=== PATIENT | male | born 1985 | race Caucasian/White ===

== ENCOUNTER 2016-09-23 18:35 | Emergency (ER) | payer SELFPAY ==
[2016-09-23] MEDS ORDERED: SODIUM CHLORIDE 1,000 ML IV STA (18:40)
[2016-09-23] MEDS ORDERED: AMPICILLIN NA/SULBACTAM NA 3 GM in SODIUM CHLORIDE 100 ML IVPB ONE (18:40)
[2016-09-23] MEDS ORDERED: KETOROLAC TROMETHAMINE 30 MG/1 ML VIAL IVPUSH ONE (18:40)
[2016-09-23] MEDS ORDERED: KETOROLAC TROMETHAMINE 30 MG/1 ML VIAL ONE (18:43)
[2016-09-23] MEDS ORDERED: AMPICILLIN NA/SULBACTAM NA 3 GM VIAL ONE (18:44)
[2016-09-23 19:07] LABS: BASOPHIL 2.3 % (0-2.0); EOSINOPHIL 0.5 % (0-4.5); MCH 29.9 pg (25.7-33.7); MCHC 34.6 g/dl (32.0-35.9); MEAN CELL VOLUME 86.3 fl (80-96); MEAN PLT VOLUME 10.2 fl (7.5-11.1); NEUTROPHILS 74.8 % (42.8-82.8); PLATELET COUNT 141 K/MM3 (134-434); RDW 12.8 % (11.9-15.9); WHITE BLOOD COUNT 14.7 K/mm3 (4.0-10.8)
[2016-09-23] MEDS ORDERED: HEMOQUE TEST 1 EACH EACH ONE (19:10)
[2016-09-23 19:13] LABS: ALBUMIN 4.1 g/dl (3.5-5.0); ALK PHOS 74 U/L (32-92); ANION GAP 10 (8-16); BILIRUBIN,TOTAL 0.9 mg/dl (0.2-1.0); CALCIUM 8.7 mg/dl (8.4-10.2); CO2 25 mmol/L (22-28); COCKROFT - GAULT 0; CREATININE 0.8 mg/dl (0.6-1.3); GLUCOSE,RANDOM 130 mg/dl (74-106); SGOT/AST 25 U/L (10-42); SGPT/ALT 19 U/L (10-40); TOT PROT 7.8 g/dl (6.4-8.3)
--- NOTE | 2016-09-23 19:24 | PDOC ---
History of Present Illness - History of Present Illness Initial Comments: 09/23/16 19:35 The patient is a 31 year old male with a history of diabetes presents to the emergency department with a complaint of throat pain for 4 days. Patient reports his throat has been swollen with progressively worsening pain. Patient reports a fever. No other symptoms reported Adult HPI PAST MEDICAL HISTORY: Diabetes PAST SURGICAL HISTORY: no significant history FAMILY HISTORY: no pertinant history SOCIAL HISTORY: Pt lives with family and is employed. MEDICATIONS: reviewed ALLERGIES: As per nursing notes ROS General:Yes fevers . No chills, no weakness, no weight loss HEENT: Yes: sore throat. Yes Throat swelling No change in vision. No ear pain CardioVascular: No chest pain or shortness of breath Respiratory:No cough, or wheezing. Gastrointestinal: no nausea, vomitting, diarrhea or constipation, No rectal bleeding Genitourinary: No dysuria, hematuria, or frequency Musculoskeletal: No joint or muscle pain or swelling Neurologic: No headache, vertigo, dizziness or loss of consciousness Psychiatric: no depression Skin: No rashes or easy bruising Endocrine: no increased thirst or abnormal weight change Allergic: no skin or latex allergy All other systems reviewed and normal Exam GENERAL: The patient is awake, alert, and fully oriented, in no acute distress. HEAD: Normal with no signs of trauma. EYES: Pupils equal, round and reactive to light, extraocular movements intact, sclera anicteric, conjunctiva clear. THROAT: very large peritonsillar abscess, posterior pharynx with displacement of the uvula, there is bilateral submandibular lymphadenopathy. EXTREMITIES: Normal range of motion, no edema. NEUROLOGICAL: Normal speech, normal gait. PSYCH: Normal mood, normal affect. SKIN: Warm, Dry, normal turgor, no rashes or lesions noted. <Juan Cornejo - Last Filed: 09/23/16 19:35> - General History Source: Patient Exam Limitations: No Limitations - History of Present Illness Initial Comments: 09/23/16 19:32 A portion of this note was documented by scribe services under my direction. I have reviewed the details of the note, within reason, and agree with the documentation. The case summary and management plan written by me. Assessment and plan: This is a 31-year-old male who comes in complaining of 4 days progressive sore throat and difficulty swallowing. Patient on exam has a huge peritonsillar abscess. Patient will be transferred to [facility] ENT service for definitive treatment of his peritonsillar abscess including incision and drainage. Patient understands the need for transfer and agrees to transfer to the [facility]. Patient requests that he be transferred to [facility] instead a [facility]. <Cheryl Jama I - Last Filed: 09/23/16 21:22> - General Chief Complaint: Sore Throat Stated Complaint: SORE THROAT, PAINFUL SWALLOWING Time Seen by Provider: 09/23/16 19:12 Past History <Juan Cornejo - Last Filed: 09/23/16 19:35> - Past Medical History HTN: Yes - Psycho/Social/Smoking Cessation Hx Anxiety: No Suicidal Ideation: No Smoking History: Former smoker Have you smoked in the past 12 months: Yes Number of Cigarettes Smoked Daily: 5 Information on smoking cessation initiated: Yes 'Breaking Loose' booklet given: 09/23/16 Hx Alcohol Use: No Drug/Substance Use Hx: No <Cheryl Jama I - Last Filed: 09/23/16 21:22> - Past Medical History Allergies/Adverse Reactions: Allergies Allergy/AdvReac Type Severity Reaction Status Date / Time No Known Allergies Allergy Verified 09/23/16 18:36 Home Medications: Ambulatory Orders No Home Medications 0 dose .ROUTE UTDICT 09/11/13 *Physical Exam - Vital Signs Last Vital Signs Temp Pulse Resp BP Pulse Ox 101 F H 103 H 20 159/107 97 09/23/16 18:35 09/23/16 18:35 09/23/16 18:35 09/23/16 18:50 09/23/16 18:35 <Juan Cornejo - Last Filed: 09/23/16 19:35> - Vital Signs Last Vital Signs Temp Pulse Resp BP Pulse Ox 101 F H 103 H 20 159/107 97 09/23/16 18:35 09/23/16 18:35 09/23/16 18:35 09/23/16 18:50 09/23/16 18:35 <Cheryl Jama I - Last Filed: 09/23/16 21:22> ED Treatment Course - LABORATORY CBC & Chemistry Diagram: 09/23/16 18:40 09/23/16 18:40 - ADDITIONAL ORDERS Additional order review: Laboratory Results 09/23/16 18:40 Sodium 136 Potassium 3.8 Chloride 101 Carbon Dioxide 25 Anion Gap 10 BUN 12 D Creatinine 0.8 Creat Clearance w eGFR > 60 Random Glucose 130 H D Calcium 8.7 Total Bilirubin 0.9 D AST 25 D ALT 19 D Alkaline Phosphatase 74 D Total Protein 7.8 Albumin 4.1 09/23/16 18:40 RBC 4.91 MCV 86.3 MCHC 34.6 RDW 12.8 MPV 10.2 Neutrophils % 74.8 D Lymphocytes % 13.6 D Monocytes % 8.8 Eosinophils % 0.5 Basophils % 2.3 H - Medications Given in the ED: ED Medications Discontinued Medications Generic Name Dose Route Start Last Admin Trade Name Freq PRN Reason Stop Dose Admin Ampicillin Sodium/Sulbactam 100 mls @ 200 mls/hr 09/23/16 18:40 09/23/16 18:55 Sodium 3 gm/ Sodium Chloride IVPB 09/23/16 19:09 200 mls/hr ONCE ONE Administration Ketorolac Tromethamine 30 mg 09/23/16 18:40 09/23/16 18:50 Toradol Injection - IVPUSH 09/23/16 18:41 30 mg ONCE ONE Administration <Juan Cornejo - Last Filed: 09/23/16 19:35> - LABORATORY CBC & Chemistry Diagram: 09/23/16 18:40 09/23/16 18:40 - ADDITIONAL ORDERS Additional order review: Laboratory Results 09/23/16 18:40 Sodium 136 Potassium 3.8 Chloride 101 Carbon Dioxide 25 Anion Gap 10 BUN 12 D Creatinine 0.8 Creat Clearance w eGFR > 60 Random Glucose 130 H D Calcium 8.7 Total Bilirubin 0.9 D AST 25 D ALT 19 D Alkaline Phosphatase 74 D Total Protein 7.8 Albumin 4.1 09/23/16 18:40 RBC 4.91 MCV 86.3 MCHC 34.6 RDW 12.8 MPV 10.2 Neutrophils % 74.8 D Lymphocytes % 13.6 D Monocytes % 8.8 Eosinophils % 0.5 Basophils % 2.3 H - Medications Given in the ED: ED Medications Discontinued Medications Generic Name Dose Route Start Last Admin Trade Name Freq PRN Reason Stop Dose Admin Ampicillin Sodium/Sulbactam 100 mls @ 200 mls/hr 09/23/16 18:40 09/23/16 18:55 Sodium 3 gm/ Sodium Chloride IVPB 09/23/16 19:09 200 mls/hr ONCE ONE Administration Ketorolac Tromethamine 30 mg 09/23/16 18:40 09/23/16 18:50 Toradol Injection - IVPUSH 09/23/16 18:41 30 mg ONCE ONE Administration <Cheryl Jama I - Last Filed: 09/23/16 21:22> *DC/Admit/Observation/Transfer <Juan Cornejo - Last Filed: 09/23/16 19:35> <Cheryl Jama I - Last Filed: 09/23/16 21:22> Diagnosis at time of Disposition: Peritonsillar abscess - Discharge Dispostion Disposition: TRANSFER ACUTE CARE/OTHER HOSP Condition at time of disposition: Stable
[2016-09-23 19:32] VITALS: BMI 31.3
[2016-09-23 20:26] VITALS: PULSE 88; TEMP 99.6
[2016-09-23 21:02] VITALS: BP 128/89
== END 2016-09-23 21:00 | disposition short-term general hospital (02) ==
LOC: FER 18:35
PROC: 3E02329 Introduction of Other Anti-infective into Muscle, Percutaneous Approach (ICD-10-PCS; principal; 2016-09-23)
PROC: 3E0233Z Introduction of Anti-inflammatory into Muscle, Percutaneous Approach (ICD-10-PCS; 2016-09-23)
PROC: 3E0337Z Introduction of Electrolytic and Water Balance Substance into Peripheral Vein, Percutaneous Approach (ICD-10-PCS; 2016-09-23)
DX: J36 Peritonsillar abscess (principal); E11.9 Type 2 diabetes mellitus without complications; I10 Essential (primary) hypertension; Z87.891 Personal history of nicotine dependence
CPT/HCPCS: 36415; 80053; 85025; 99285-25

== ENCOUNTER 2018-05-07 22:01 | Emergency (ER) | payer SELFPAY ==
[2018-05-07 22:10] VITALS: PULSE 90; TEMP 98.1; BMI 36.5
[2018-05-07] MEDS ORDERED: SODIUM CHLORIDE 1,000 ML IV ONE (22:15)
[2018-05-07] MEDS ORDERED: KETOROLAC TROMETHAMINE 30 MG/1 ML VIAL IVPUSH ONE (22:15)
--- NOTE | 2018-05-07 22:19 | PDOC ---
History of Present Illness - History of Present Illness Initial Comments: The patient is a 33 year old male, with a significant PMH of DM, who presents to the emergency department today complaining of RUQ pain for 5 days. Patient notes the pain is localized to the RUQ area, and describes it as a burning sensation. Pain is unaffected by meals, but is exacerbated with any movement. Patient denies history of similar symptoms. The patient denies chest pain, shortness of breath, headache and dizziness. Denies fever, chills, nausea, vomit, diarrhea and constipation. Denies dysuria, frequency, urgency and hematuria. PAST MEDICAL HISTORY: no significant history PAST SURGICAL HISTORY: no significant history FAMILY HISTORY: Mother had gallstones. SOCIAL HISTORY: Pt lives with family and is employed. MEDICATIONS: reviewed ALLERGIES: As per nursing notes ROS General: No fevers or chills, no weakness, no weight loss HEENT: No change in vision. No sore throat,. No ear pain CardioVascular: No chest pain or shortness of breath Respiratory:No cough, or wheezing. Gastrointestinal: no nausea, vomiting, diarrhea or constipation, No rectal bleeding Genitourinary: No dysuria, hematuria, or frequency Musculoskeletal: +RUQ pain. No joint or muscle swelling. Neurologic: No headache, vertigo, dizziness or loss of consciousness Psychiatric: nor depression Skin: No rashes or easy bruising Endocrine: no increased thirst or abnormal weight change Allergic: no skin or latex allergy All other systems reviewed and normal Exam: General: Well-nourished well-developed individual, no acute distress HEENT: Throat: Normal, tonsils normal, no erythema or exudate Neck: Supple, no meningeal signs, no lymphadenopathy Eyes::Pupils equal reactive and round, extraocular motion intact Chest: Nontender to palpation Cardiac: S1-S2 normal, regular rate and rhythm, no murmurs rubs or gallops Respiratory: Lungs clear to auscultation bilateral Abdomen: +Mild to moderate tenderness to palpation on the RUQ. Soft, nondistended, normal bowel sounds. No guarding, no rebound. Extremities: Warm, dry, no cyanosis, clubbing, or edema Skin: No rashes Neuro: Alert and oriented x3, nonfocal exam, grossly intact, normal gait Psych: Normal mood and affect 05/07/18 22:22 <Sonya Nam - Last Filed: 05/07/18 22:22> - General History Source: Patient Exam Limitations: No Limitations - History of Present Illness Initial Comments: 05/07/18 22:19 A portion of this note was documented by scribe services under my direction. I have reviewed the details of the note, within reason, and agree with the documentation with the following case summary and management plan written by me. Patient treated in the ED. Nursing notes are reviewed and incorporated into the medical decision-making. Vital signs reviewed. Medical decision making: This is a 33-year-old male who comes in complaining of right upper quadrant pain 5 days. Patient said it is worse with movement and using the abdominal wall muscles. Patient describes the pain as a burning sensation. On my exam patient did have tenderness in his right upper quadrant in the area of the gallbladder. Workup obtained including CBC, comp, lipase and OF THE GALLBLADDER Patient given fluids and Toradol for pain 05/07/18 23:29 Patient has a history significant for type 2 diabetes and he takes metformin. Patient said his last and he visited his primary care doctor was 4 months ago. Patient sugar here in the emergency room tonight was 450. Patient said the Toradol also did improve his discomfort. Patient will be hydrated with liter fluid and given 10 units of insulin IV push and then sugar repeated. If sugars less than 300 he will be discharged home. <Cheryl Jama I - Last Filed: 05/07/18 23:31> - General Chief Complaint: Pain Stated Complaint: RUQ PAIN Time Seen by Provider: 05/07/18 22:07 Past History <Sonya Nam - Last Filed: 05/07/18 22:22> - Past Medical History COPD: No Diabetes: Yes (NIDDM) HTN: Yes - Suicide/Smoking/Psychosocial Hx Smoking History: Former smoker Have you smoked in the past 12 months: Yes Number of Cigarettes Smoked Daily: 5 Information on smoking cessation initiated: Yes 'Breaking Loose' booklet given: 09/23/16 Hx Alcohol Use: No Drug/Substance Use Hx: No Substance Use Type: None <Cheryl Jama I - Last Filed: 05/07/18 23:31> - Past Medical History Allergies/Adverse Reactions: Allergies Allergy/AdvReac Type Severity Reaction Status Date / Time No Known Allergies Allergy Verified 04/16/17 18:36 Home Medications: Ambulatory Orders No Home Medications 0 dose .ROUTE UTDICT 09/11/13 *Physical Exam - Vital Signs Last Vital Signs Temp Pulse Resp BP Pulse Ox 98.1 F 90 14 153/100 100 05/07/18 22:07 05/07/18 22:07 05/07/18 22:07 05/07/18 22:07 05/07/18 22:07 <Sonya Nam - Last Filed: 05/07/18 22:22> - Vital Signs Last Vital Signs Temp Pulse Resp BP Pulse Ox 98.1 F 90 14 153/100 100 05/07/18 22:07 05/07/18 22:07 05/07/18 22:07 05/07/18 22:07 05/07/18 22:07 <Cheryl Jama I - Last Filed: 05/07/18 23:31> Moderate Sedation - Procedure Monitoring Vital Signs: Procedure Monitoring Vital Signs Temperature 98.1 F 05/07/18 22:07 Pulse Rate 90 05/07/18 22:07 Respiratory Rate 14 05/07/18 22:07 Blood Pressure 153/100 05/07/18 22:07 O2 Sat by Pulse Oximetry (%) 100 05/07/18 22:07 <Sonya Nam - Last Filed: 05/07/18 22:22> - Procedure Monitoring Vital Signs: Procedure Monitoring Vital Signs Temperature 98.1 F 05/07/18 22:07 Pulse Rate 90 05/07/18 22:07 Respiratory Rate 14 05/07/18 22:07 Blood Pressure 153/100 05/07/18 22:07 O2 Sat by Pulse Oximetry (%) 100 05/07/18 22:07 <Cheryl Jama I - Last Filed: 05/07/18 23:31> ED Treatment Course - LABORATORY CBC & Chemistry Diagram: 05/07/18 22:40 05/07/18 22:40 <Cheryl Jama I - Last Filed: 05/07/18 23:31> *DC/Admit/Observation/Transfer - Attestations Scribe Attestion: 05/07/18 22:23 Documentation prepared by TIKA Rizo, acting as medical chemist for Cheryl Jama I MD. <Sonya Nam - Last Filed: 05/07/18 22:22> - Discharge Dispostion Decision to Admit order: No <Cheryl Jama I - Last Filed: 05/07/18 23:31> Diagnosis at time of Disposition: Abdominal wall pain, Hyperglycemia - Discharge Dispostion Disposition: HOME Condition at time of disposition: Good - Referrals Referrals: Chet Mckinney MD [Primary Care Provider] - - Patient Instructions Additional Instructions: It is very important that you take all your medications thinks prescribed. Tylenol or Motrin as needed for the pain. Follow-up with your primary care doctor early next week if you still or experiencing any discomfort. Return to the emergency department immediately with ANY new, persistent or worsening symptoms. Continue any medications as previously prescribed by your physician. You should follow up with your primary doctor as soon as possible regarding today's emergency department visit. . Please make sure your doctor reviews the results of your emergency evaluation. Thank you for coming to the Emergency Department today for your care. It was a pleasure to see you today. Please note that your evaluation is INCOMPLETE until you follow-up with your doctor. - Post Discharge Activity
[2018-05-07] MEDS ORDERED: KETOROLAC TROMETHAMINE 30 MG/1 ML VIAL ONE (22:46)
[2018-05-07 23:06] LABS: HEMATOCRIT 46.5 % (35.4-49); HEMOGLOBIN 15.6 GM/dl (11.7-16.9); MCH 28.1 pg (25.7-33.7); MCHC 33.6 g/dl (32.0-35.9); MEAN CELL VOLUME 83.6 fl (80-96); MEAN PLT VOLUME 11.8 fl (7.5-11.1); PLATELET COUNT 145 K/MM3 (134-434); RBC 5.56 M/mm3 (4.00-5.60); RDW 13.6 % (11.9-15.9); WHITE BLOOD COUNT 8.1 K/mm3 (4.0-10.8)
[2018-05-07 23:07] LABS: BASO % 0.7 % (0-2.0); LYMPH % 33.6 % (8-40); MONO % 6.3 % (3.8-10.2); NEUT % 57.4 % (42.8-82.8)
[2018-05-07 23:09] LABS: ALBUMIN 3.8 g/dl (3.5-5.0); ALK PHOS 130 U/L (32-92); ANION GAP 7 MMOL/L (8-16); BILIRUBIN,TOTAL 0.4 mg/dl (0.2-1.0); BLOOD UREA NITROGEN 15 mg/dl (7-18); CHLORIDE 99 mmol/L (98-107); CO2 23 mmol/L (22-28); CREATININE 0.9 mg/dl (0.6-1.3); POTASSIUM 3.8 mmol/L (3.5-5.1); SGOT/AST 28 U/L (10-42); SGPT/ALT 38 U/L (10-40); SODIUM 129 mmol/L (136-145); TOT PROT 7.4 g/dl (6.4-8.3)
[2018-05-07 23:11] LABS: GLUCOSE,RANDOM 451 mg/dl (74-106)
[2018-05-07] MEDS ORDERED: INSULIN REGULAR HUMAN 100 UNITS/ML *VIAL IVPUSH ONE (23:15)
[2018-05-07] MEDS ORDERED: INSULIN REGULAR HUMAN 100 UNITS/ML *VIAL ONE (23:24)
[2018-05-07 23:26] LABS: LIPASE 202 U/L (73-393)
[2018-05-08 00:47] VITALS: BP 142/90
== END 2018-05-08 00:47 | disposition home or self-care (01) ==
LOC: FER 22:01
PROC: 3E033VG Introduction of Insulin into Peripheral Vein, Percutaneous Approach (ICD-10-PCS; principal; 2018-05-07)
PROC: 3E0333Z Introduction of Anti-inflammatory into Peripheral Vein, Percutaneous Approach (ICD-10-PCS; 2018-05-07)
PROC: 3E0337Z Introduction of Electrolytic and Water Balance Substance into Peripheral Vein, Percutaneous Approach (ICD-10-PCS; 2018-05-07)
DX: R10.9 Unspecified abdominal pain (principal); R73.9 Hyperglycemia, unspecified; Z87.891 Personal history of nicotine dependence; I10 Essential (primary) hypertension; E11.9 Type 2 diabetes mellitus without complications
CPT/HCPCS: 36415; 76705-TC; 80053; 82962; 83690; 85025; 99283-25; J7030

== ENCOUNTER 2023-03-04 15:36 | Emergency (ER) | payer OTHER ==
[2023-03-04 15:49] VITALS: BP 127/85; PULSE 89; RESP 16; TEMP 97.8; BMI 32.1
[2023-03-04] MEDS ORDERED: DIPHTH,PERTUSS(ACELL),TET 0.5 ML DISP.SYRIN IM ONE ×2 (15:51→16:07)
[2023-03-04] MEDS ORDERED: IBUPROFEN 600 MG TABLET (FP) PO ONE ×2 (15:51→16:07)
[2023-03-04] MEDS ORDERED: CEPHALEXIN MONOHYDRATE 500 MG CAPSULE (UD) PO ONE (18:00)
[2023-03-04] MEDS ORDERED: CEPHALEXIN MONOHYDRATE 500 MG CAPSULE (UD) ONE (18:02)
== END 2023-03-04 18:25 | disposition home or self-care (01) ==
LOC: FER 15:36
PROC: 0HQGXZZ Repair Left Hand Skin, External Approach (ICD-10-PCS; principal; 2023-03-04)
PROC: 3E0234Z Introduction of Serum, Toxoid and Vaccine into Muscle, Percutaneous Approach (ICD-10-PCS; 2023-03-04)
DX: S61.211A Laceration without foreign body of left index finger without damage to nail, initial encounter (principal); W27.2XXA Contact with scissors, initial encounter; Y93.H2 Activity, gardening and landscaping
CPT/HCPCS: 12001-25; 73140-TC-LT-FY; 90471; 90715; 99283-25